=== PATIENT | male | born 1995 | race Caucasian/White ===

== ENCOUNTER 2024-08-13 16:48 | Inpatient (IN) | payer OTHER ==
--- NOTE | 2024-08-13 17:18 | ED ---
General Adult HPI - General Chief complaint: Psychiatric Symptoms Stated complaint: mental health- petition Time Seen by Provider: 08/13/24 16:50 Source: patient, police, RN notes reviewed Mode of arrival: ambulatory Limitations: altered mental status - History of Present Illness Initial comments: Patient is a 28-year-old male presenting to the emergency department with transit police officer escort. They do have concern for psychiatric eval. Patient originally called the police with concerns about demons and dogs tied to posts. Patient was then assaulting people at the building he was at. Patient arrested and brought to correction however had continued behavior. Family reportedly has intention of doing a petition on the patient. Patient will not speak to me at all. Patient does speak to nurse at times. - Related Data Home Medications Medication Instructions Recorded Confirmed No Known Home Medications 08/13/24 08/13/24 Allergies Allergy/AdvReac Type Severity Reaction Status Date / Time red dye 40 Allergy Nausea & Uncoded 08/13/24 18:44 Vomiting Review of Systems ROS Statement: Those systems with pertinent positive or pertinent negative responses have been documented in the HPI. ROS Other: All systems not noted in ROS Statement are negative. Limitations: ROS unobtainable due to patients medical condition Past Medical History Past Medical History: No Reported History History of Any Multi-Drug Resistant Organisms: None Reported Past Surgical History: No Surgical Hx Reported Past Psychological History: No Psychological Hx Reported Smoking Status: Never smoker Past Alcohol Use History: None Reported Past Drug Use History: Marijuana General Exam Limitations: no limitations General appearance: alert, in no apparent distress Head exam: Present: atraumatic Eye exam: Present: normal appearance Neck exam: Present: normal inspection. Absent: tenderness, meningismus Respiratory exam: Present: normal lung sounds bilaterally Cardiovascular Exam: Present: tachycardia GI/Abdominal exam: Present: soft. Absent: tenderness Extremities exam: Present: other (Bilateral feet are wet and cool) Neurological exam: Present: alert, altered Psychiatric exam: Present: anxious Expanded Focused psych exam: Present: mute Skin exam: Present: normal color Course Vital Signs 08/13/24 16:58 Temperature 98.1 F Pulse Rate 122 H Respiratory 20 Rate Blood Pressure 161/106 O2 Sat by Pulse 99 Oximetry Procedures - Restraint - Face to Face Restraint Occurrence 1 Patient's Immediate Situation: Endangers self safety, Endangers others' safety, Endangers staff safety Patient's Reaction to the Intervention: Uncooperative Patient's Medical & Behavioral Condition: Awake, Alert Need to Continue or Terminate Restraint or Seclusion: Continue Face to Face Eval of Restraint Date: 08/13/24 Face to Face Eval of Restraint Time: 19:04 Medical Decision Making - Medical Decision Making Was pt. sent in by a medical professional or institution (, JENNIFER, BUSINESS OPERATIONS MANAGER, urgent care, hospital, or half-way...) When possible be specific @ -No Did you speak to anyone other than the patient for history (EMS, parent, family, police, friend...)? What history was obtained from this source @ -Please provide history as patient refuses Did you review nursing and triage notes (agree or disagree)? Why? @ -I reviewed and agree with nursing and triage notes Were old charts reviewed (outside hosp., previous admission, EMS record, old EKG, old radiological studies, urgent care reports/EKG's, half-way records)? Report findings @ -No old charts were reviewed Differential Diagnosis (chest pain, altered mental status, abdominal pain women, abdominal pain men, vaginal bleeding, weakness, fever, dyspnea, syncope, headache, dizziness, GI bleed, back pain, seizure, CVA, palpatations, mental health, musculoskeletal)? @ -Differential Mental Health Depression, anxiety, bipolar, psychosis, schizophrenia, borderline personality, situational depression, adjustment disorder, behavioral disorder, brain tumor, malingering, substance abuse, encephalopathy, medication reaction, dementia, hypothyroidism, degenerative neurologic disorder, lupus.... This is not meant to be all-inclusive list EKG interpreted by me (3pts min.). @ -As above X-rays interpreted by me (1pt min.). @ -None done CT interpreted by me (1pt min.). @ -None done U/S interpreted by me (1pt. min.). @ -None done What testing was considered but not performed or refused? (CT, X-rays, U/S, labs)? Why? @ -None What meds were considered but not given or refused? Why? @ -None Did you discuss the management of the patient with other professionals (professionals i.e. , JENNIFER, BUSINESS OPERATIONS MANAGER, lab, RT, psych nurse, criminal justice social worker, circus artist, teacher, loan servicing officer, complex case manager)? Give summary @ -Case was discussed with psychiatric nurse with plans for admission Was smoking cessation discussed for >3mins.? @ -No Was critical care preformed (if so, how long)? @ -No Were there social determinants of health that impacted care today? How? (Homelessness, low income, unemployed, alcoholism, drug addiction, transportation, low edu. Level, literacy, decrease access to med. care, correction, rehab)? @ -No Was there de-escalation of care discussed even if they declined (Discuss DNR or withdrawal of care, Hospice)? DNR status @ -No What co-morbidities impacted this encounter? (DM, HTN, Smoking, COPD, CAD, Cancer, CVA, ARF, Chemo, Hep., AIDS, mental health diagnosis, sleep apnea, morbid obesity)? @ -None Was patient admitted / discharged? Hospital course, mention meds given and rou te, prescriptions, significant lab abnormalities, going to OR and other pertinent info. @ -Patient presents with concerns for psychiatric problems. Patient is delusional and restless and agitated. Patient is obsessed with demons and dragons. Positive clinical certificate completed. Undiagnosed new problem with uncertain prognosis? @ -No Drug Therapy requiring intensive monitoring for toxicity (Heparin, Nitro, Insulin, Cardizem)? @ -No Were any procedures done? @ -No Diagnosis/symptom? @ -Acute psychosis Acute, or Chronic, or Acute on Chronic? @ -Acute Uncomplicated (without systemic symptoms) or Complicated (systemic symptoms)? @ -Default Side effects of treatment? @ -No Exacerbation, Progression, or Severe Exacerbation? @ -No Poses a threat to life or bodily function? How? (Chest pain, USA, PR, pneumonia, PE, COPD, DKA, ARF, appy, cholecystitis, CVA, Diverticulitis, Homicidal, Suicidal, threat to staff... and all critical care pts) @ -No Disposition Clinical Impression: Psychosis Disposition: TRANSFER TO PSYCH HOSP/UNIT Is patient prescribed a controlled substance at d/c from ED?: No Referrals: None,Stated [REFERRING] - 1-2 days Time of Disposition: 20:14
[2024-08-13] MEDS: LORazepam 2 MG/ML INJ IM STA (19:20)
[2024-08-13] MEDS: ZIPRASIDONE 20 MG VIAL IM STA (19:20)
[2024-08-13] MEDS ORDERED: LORazepam 1 MG TAB PO PRN (21:35)
[2024-08-13] MEDS ORDERED: MAGNESIUM HYDROXIDE 2,400 MG/30 ML CUP PO PRN (21:35)
[2024-08-13] MEDS ORDERED: IBUPROFEN 600 MG TAB PO PRN (21:35)
[2024-08-13] MEDS ORDERED: MAG HYDROX/AL HYDROX/SIMETH 355 ML BOTTLE PO PRN (21:35)
[2024-08-13] MEDS ORDERED: ACETAMINOPHEN TAB 325 MG TAB PO PRN (21:35)
[2024-08-14] MEDS: HALOPERIDOL LACTATE 5 MG/ML 1 ML VIAL IM PRN (04:30)
[2024-08-14] MEDS: LORazepam 2 MG/ML INJ IM PRN (04:30)
--- NOTE | 2024-08-14 05:45 | P.MHFACE ---
Face to Face Restrain/Seclus - Evaluation Patient's Immediate Situation: Endangers others' safety, Endangers staff safety, Violent behavior Patient's Medical & Behavioral Condition: Sleeping Patient's Medical & Behavioral Condition - Comment: Patient became erratic, aggressive, and uncooperative with staff. He had to be physically restrained. He received 1 mg Ativan and 5 mg Haldol at 0430. At the time of this evaluation patient was seen sleeping. Chest rise and fall visualized. Face to Face Eval of Restraint Date: 08/14/24 Face to Face Eval of Restraint Time: 05:15
[2024-08-14] MEDS: LORazepam 2 MG/ML INJ IM STA (08:40)
[2024-08-14] MEDS: HALOPERIDOL LACTATE 5 MG/ML 1 ML VIAL IM STA (08:40)
[2024-08-14] MEDS: NICOTINE 14MG/24HR PATCH TRANSDERM SCH (09:14)
--- NOTE | 2024-08-14 09:14 | P.MHFACE ---
Face to Face Restrain/Seclus - Evaluation Patient's Immediate Situation: Endangers self safety, Endangers staff safety Patient's Reaction to the Intervention: Calm Patient's Medical & Behavioral Condition: Awake, Alert Patient's Medical & Behavioral Condition - Comment: Patient became aggressive, and uncooperative with staff. He had to be physically restrained. At the time of this evaluation patient was seen resting,awakes on voice command. Chest rise and fall visualized. Need to Continue or Terminate Restraint or Seclusion: Continue Face to Face Eval of Restraint Date: 08/14/24 Face to Face Eval of Restraint Time: 09:05
[2024-08-14] MEDS: chlorproMAZINE 25 MG/ML 2 ML AMP IM ONE (10:00)
[2024-08-14 10:10] LABS: Basophils % (A) 1 %; Eosinophils # (A) 0.1 k/uL (0-0.7); Eosinophils % (A) 1 %; HCT 43.9 % (39.0-53.0); HGB 13.9 gm/dL (13.0-17.5); Lymphocytes # (A) 1.3 k/uL (1.0-4.8); Lymphocytes % (A) 21 %; MCH 28.4 pg (25.0-35.0); MCHC 31.7 g/dL (31.0-37.0); MCV 89.5 fL (80.0-100.0); Mean Platelet Volume 6.5; Monocytes # (A) 0.5 k/uL (0-1.0); Monocytes % (A) 8 %; Neutrophils % (A) 68 %; Platelet Count 208 k/uL (150-450); RDW 12.6 % (11.5-15.5); WBC 5.9 k/uL (3.8-10.6)
[2024-08-14 10:51] LABS: ALT 18 U/L (4-49); AST 26 U/L (17-59); African American GFR (CKD) >90 (>60 ml/min/1.73 sqM); Alkaline Phosphatase 37 U/L (38-126); Anion Gap 8 mmol/L; Bilirubin,Unconjugated 0.8 mg/dL (0.0-1.1); Blood Urea Nitrogen 11 mg/dL (9-20); Calcium 9.2 mg/dL (8.4-10.2); Carbon Dioxide 26 mmol/L (22-30); Chloride 106 mmol/L (98-107); Glucose 81 mg/dL (74-99); Non-African American GFR(CKD) 87 (>60 ml/min/1.73 sqM); Potassium 3.8 mmol/L (3.5-5.1); Sodium 140 mmol/L (137-145); Total Bilirubin 0.8 mg/dL (0.2-1.3); Total Protein 6.5 g/dL (6.3-8.2)
--- NOTE | 2024-08-14 12:30 | P.HP ---
Psychiatric H&P - . H&P Date: 08/14/24 History & Physical: Allergies Allergy/AdvReac Type Severity Reaction Status Date / Time red dye 40 Allergy Nausea & Uncoded 08/13/24 18:44 Vomiting Vital Signs Temp 98.1 F 08/14/24 08:29 Pulse 73 08/14/24 08:29 Resp 18 08/14/24 08:29 BP 118/55 08/14/24 08:29 Pulse Ox 96 08/14/24 08:29 FiO2 Intake & Output 08/13/24 08/14/24 08/14/24 18:59 06:59 18:59 Weight 77.655 kg 82.27 kg Laboratory Last Values WBC 5.9 k/uL (3.8-10.6) 08/14/24 09:24 RBC 4.90 m/uL (4.30-5.90) 08/14/24 09:24 Hgb 13.9 gm/dL (13.0-17.5) 08/14/24 09:24 Hct 43.9 % (39.0-53.0) 08/14/24 09:24 MCV 89.5 fL (80.0-100.0) 08/14/24 09:24 MCH 28.4 pg (25.0-35.0) 08/14/24 09:24 MCHC 31.7 g/dL (31.0-37.0) 08/14/24 09:24 RDW 12.6 % (11.5-15.5) 08/14/24 09:24 Plt Count 208 k/uL (150-450) 08/14/24 09:24 MPV 6.5 08/14/24 09:24 Neutrophils % 68 % 08/14/24 09:24 Lymphocytes % 21 % 08/14/24 09:24 Monocytes % 8 % 08/14/24 09:24 Eosinophils % 1 % 08/14/24 09:24 Basophils % 1 % 08/14/24 09:24 Neutrophils # 4.0 k/uL (1.3-7.7) 08/14/24 09:24 Lymphocytes # 1.3 k/uL (1.0-4.8) 08/14/24 09:24 Monocytes # 0.5 k/uL (0-1.0) 08/14/24 09:24 Eosinophils # 0.1 k/uL (0-0.7) 08/14/24 09:24 Basophils # 0.0 k/uL (0-0.2) 08/14/24 09:24 Sodium 140 mmol/L (137-145) 08/14/24 09:24 Potassium 3.8 mmol/L (3.5-5.1) 08/14/24 09:24 Chloride 106 mmol/L (98-107) 08/14/24 09:24 Carbon Dioxide 26 mmol/L (22-30) 08/14/24 09:24 Anion Gap 8 mmol/L 08/14/24 09:24 BUN 11 mg/dL (9-20) 08/14/24 09:24 Creatinine 1.14 mg/dL (0.66-1.25) 08/14/24 09:24 Est GFR (CKD-EPI)AfAm >90 (>60 ml/min/1.73 sqM) 08/14/24 09:24 Est GFR (CKD-EPI)NonAf 87 (>60 ml/min/1.73 sqM) 08/14/24 09:24 Glucose 81 mg/dL (74-99) 08/14/24 09:24 Calcium 9.2 mg/dL (8.4-10.2) 08/14/24 09:24 Total Bilirubin 0.8 mg/dL (0.2-1.3) 08/14/24 09:24 Conjugated Bilirubin 0.0 mg/dL (0.0-0.3) 08/14/24 09:24 Unconjugated Bilirubin 0.8 mg/dL (0.0-1.1) 08/14/24 09:24 Delta Bilirubin 0.0 mg/dL (0.0-0.2) 08/14/24 09:24 AST 26 U/L (17-59) 08/14/24 09:24 ALT 18 U/L (4-49) 08/14/24 09:24 Alkaline Phosphatase 37 U/L (38-126) L 08/14/24 09:24 Total Protein 6.5 g/dL (6.3-8.2) 08/14/24 09:24 Albumin 4.0 g/dL (3.5-5.0) 08/14/24 09:24 TSH 1.270 mIU/L (0.465-4.680) 08/14/24 09:24 SARS-CoV-2 (PCR) Not Detected (Not Detectd) 08/13/24 20:15 08/14/24 12:12 IDENTIFYING DATA: Patient is a 28-year-old male, lives with parents, was petitioned by his sister for psychosis agitation/aggression. HPI: Patient presented to the hospital [yesterday and was evaluated by EPS nurse and according to note "Upon assessment pt was in restraints. RN explained to pt why he was restrained, he states, "I wanted to scare them to break the hypnosis". Pt was calm during assessment and was taken out. Pt verbally contracted for safety. RN continued the assessment. Pt was slightly drowsy r/t IM's given. Pt denied SI, HI, and hallucinations at this time. RN did not see pt responding to IS at this time. When asked why he was here he stated "the fire department, they had a mailmaster on the roof...demonic sacrifice alter...I could see they were being controlled, it was all apart of the scheme". When pt was taken out of restraints pt asked, "you aren't all brain washed are you"? Pt was petitioned by his sister who states he is erratic, religiously preoccupied, he is channeling demonic energies. He has not been sleeping or eating. He has been physically aggressive. He believes that his mother is a demon he need to punch her in the face to reset the timeline. Pt has no insight into his mental health. Pt denies etoh use. Admits to use of marijuana, but denies the use of ot her substances. Denies any medical conditions. Not in any mental health treatment and denies any inpatient stays. Pt has no home medications." Patient was very agitated and aggressive in the ER, psychotic and delusional. Patient was given several as needed medications for agitation, also placed in restraints. Patient was transferred to the mental health unit, again was aggressive towards staff attempted to steal nurses keys. Patient was not redirectable, was placed in restraints twice this morning and given several PRNs. Automobile Glass Technician attempted to see patient this morning for assessment and patient was just out of 4 point restraints. He was heavily sedated, mumbled a few words, had the blankets covering his head. He did speak about being "controlled" by demons and believes that someone is out to get him. Not much information at this time. According to petition filled out by patient's sister states that "in a state of delusional psychosis, erratic behavior spiritually and religiously p reoccupied. States he is an Archangel Charlie and channeling demonic energies physically and verbally hostile and aggressive. Not eating or sleeping". Petition also states that patient was threatening to punch his mother and her face and was believing that his mother was a demon and thought that he had spiritual sanchez. patient unable to give further infortmation att this time due to heavy sedation and mental state. PAST PSYCHIATRIC HISTORY: Patient has no noted site past psychiatric history, has never been admitted to the mental health unit. Not on any psychiatric medications at home. PMH: as per ER note ALLERGIES: as per EMR CHEMICAL DEPENDENCY HISTORY: Patient did not give a urine drug screen, does state that he smokes marijuana only FAMILY PSYCHIATRIC/SUBSTANCE USE HISTORY: Unable to assess SOCIAL HISTORY: Patient lives with his parents, he is unable to provide further social history MENTAL STATUS EXAM: General Appearance: Patient appears to be in bed, heavily sedated and sheets covering him. Not directable, mumbling and unable to assess Behavior: Patient in bed, heavily sedated Speech: Patient's speech is mumbling Mood/Affect: Unable to assess Suicidality/Homicidality: Unable to assess Perceptions: Unable to assess Though content/process: Unable to assess, patient was apparently illogical, loose associations religiously preoccupied. Memory and concentration: Unable to assess due to heavy sedation Judgment and insight: Poor/impulsive STRENGTHS/WEAKNESSES: strength is that patient is resilient. Weakness is that patient has poor judgment and is impulsive INTELLECT: unable to assess IMPRESSIONS: Psychosis unspecified, rule out substance-induced versus schizophrenia versus schizoaffective disorder versus due to a general medical condition Cannabis use disorder PLAN: -Patient is admitted under involuntary status to MHU for stabilization of psychiatric symptoms and safety. Patient has not signed adult voluntary form and has not signed medication consent and is placed in patient's chart. A second certification was completed and along with petition will be filed for court. -Medications : Invega p.o. 3 mg twice daily for psychosis/mood stabilization. -Ativan and Thorazine PRN for agitation/aggression. Vistaril as needed for anxiety. -Internal Medicine consult to perform medical evaluation and physical. -NRT -not needed -SW on board for discharge planning. Encourage patient to participate in groups to work on coping skills. Will await deferral and court date. 08/14/24 12:17 08/14/24 12:21 08/14/24 12:29
--- NOTE | 2024-08-14 14:55 | P.MDCNMH ---
History of Present Illness H&P Date: 08/14/24 This is a 28-year-old male who was brought in by police and petitioned for psychiatric evaluation. Patient originally per ER documentation had called the police with concerns about demons and dogs being tied to the posts and was also noted to be assaulting people at the building where he was at and patient was ultimately arrested and brought to [facility] although continued to have aggressive psychotic behavior and brought to the ER for further evaluation. Patient is petitioned and deemed medically stable from the ER and brought to [facility] for continued psychiatric care and evaluation. Patient follows with Dr. Bowser in the outpatient setting with no significant past medical history reported other than marijuana use daily. Patient had labs drawn this morning and within normal limits other than a creatinine mildly elevated at 1.14. COVID testing was negative. Patient extremely aggressive and a code ohara was called on psychiatric unit and patient was medicated and currently sedated. Will attempt to reevaluate on 08/15/2024. REVIEW OF SYSTEMS: Unable to obtain as patient is sedated currently The rest of the 14-point review of systems is negative. PHYSICAL EXAMINATION: GENERAL: The patient is alert and oriented x0 sedated, Well developed, thin built HEENT: Pupils are round and equally reacting to light. EOMI. No scleral icterus. No conjunctival pallor. Normocephalic, atraumatic. No pharyngeal erythema. No thyromegaly. CARDIOVASCULAR: S1 and S2 present. No murmurs, rubs, or gallops. PULMONARY: Chest is clear to auscultation, no wheezing or crackles. ABDOMEN: Soft, nontender, nondistended, normoactive bowel sounds. No palpable organomegaly. MUSCULOSKELETAL: No joint swelling or deformity. EXTREMITIES: No cyanosis, clubbing, or pedal edema. NEUROLOGICAL: Gross neurological examination did not reveal any focal deficits. SKIN: No rashes. Assessment: Psychosis with hallucinations, possible schizophrenia versus schizoaffective disorder THC use, daily GI prophylaxis Full code Plan: Patient was petitioned and brought in by police after being arrested for irrat ional aggressive behavior Patient is in acute psychosis reporting there are demons and people out to get him Concerns for polysubstance abuse although only reports to smoking marijuana daily. Urine drug screen ordered and pending at this time Patient extremely aggressive multiple times on the unit and currently heavily sedated. Will attempt to perform a physical assessment more thoroughly on 08/[address] Bowser in the outpatient setting and will attempt to gather more medical history Thank you kindly for this consultation The impression and plan of care has been dictated by Vani Burger, Nurse Practitioner as directed. Dr. Gely MD I have performed a history and examination and MDM of this patient, discussed the same with the dictator, and agree with the dictator's assessment and plan as written ,documented as a scribe. Based on total visit time, I have performed more than 50% of the visit. Past Medical History Past Medical History: No Reported History History of Any Multi-Drug Resistant Organisms: None Reported Past Surgical History: No Surgical Hx Reported Past Anesthesia/Blood Transfusion Reactions: Unable to Obtain Past Psychological History: No Psychological Hx Reported Smoking Status: Never smoker Past Alcohol Use History: None Reported Past Drug Use History: Marijuana - Past Family History Father Family Medical History: Unable to Obtain Mother Family Medical History: Unable to Obtain Medications and Allergies Home Medications Medication Instructions Recorded Confirmed Type No Known Home Medications 08/13/24 08/13/24 History Allergies Allergy/AdvReac Type Severity Reaction Status Date / Time red dye 40 Allergy Nausea & Uncoded 08/13/24 18:44 Vomiting Physical Exam Vitals: Vital Signs Temp Pulse Pulse Resp BP BP Pulse Ox 08/13/24 23:00 98.6 F 74 18 148/96 98 08/13/24 22:37 47 L 104/65 08/13/24 16:58 98.1 F 122 H 20 161/106 99 Intake and Output 08/13/24 08/14/24 08/14/24 22:59 06:59 14:59 Other: Weight 82.27 kg 82.27 kg Cranial Nerve Examination - Cranial Nerves Cranial Nerve I- Olfactory: Intact Cranial Nerve II- Optic: Intact Cranial Nerve III- Oculomotor: Intact Cranial Nerve IV- Trochlear: Intact Cranial Nerve V- Trigeminal: Intact Cranial Nerve - Abducens: Intact Cranial Nerve VII- Facial: Intact Cranial Nerve VIII- Auditory: Intact Cranial Nerve IX- Glossopharyngeal: Intact Cranial Nerve X- Vagus: Intact Cranial Nerve XI- Accessory: Intact Cranial Nerve XII- Hypoglossal: Intact Results CBC & Chem 7: 08/14/24 09:24 08/14/24 09:24 Assessment and Plan Time with Patient: Less than 30
[2024-08-14 16:53] LABS: Chol/HDL Ratio 3.29 Ratio; LDL Cholesterol,Calculated 92.5 mg/dL (0.0-131.0)
[2024-08-15] MEDS: LORazepam 2 MG/ML INJ IM PRN (12:49)
--- NOTE | 2024-08-15 13:36 | P.PN ---
Subjective Progress Note Date: 08/15/24 Principal diagnosis: psychosis NOS I was called to see the patient because he had become agitated. He was standing in the [place] with just the hospital gown on his hair was disheveled his affect intense. The second he saw me he said are you the doctor. We then came up to me and demanded to be discharged. Then he asked me if I scared easily and proceeded to throw his arms in the air and my direction and scream at the top of his lungs. He then was waving his hand in my face with his finger extended and I did feel somewhat endangered but I had security guards standing right there. He said, "you have to let me out of here because I'm an kori in hell".he had had a when necessary of Haldol and Ativan about 20 minutes earlier and it has not kicked in yet. Yesterday the same dose made him sedated MENTAL STATUS EXAM: General Appearance: disheveled Behavior: agitated demanding loud pacing no boundaries physically Speech: Patient's speech isrambling and somewhat psychotic Mood/Affect: Unable to assess Suicidality/Homicidality: Unable to assess Perceptions: Unable to assess Though content/process: Unable to assess, patient was apparently illogical, loose associations religiously preoccupied. Memory and concentration: he said "this is wanting to talk to me but he should just let me out of here." Judgment and insight:absent due to psychosis STRENGTHS/WEAKNESSES: strength is that patient is resilient. Weakness is that patient has poor judgment and is impulsiveand is psychotic INTELLECT: unable to assess IMPRESSIONS: he is a danger to self and others due to psychosis and angry agitation and yelling and threatening behavior Psychosis unspecified, rule out substance-induced versus schizophrenia versus schizoaffective disorder versus due to a general medical condition Cannabis use disorder PLAN: we might have to increase his when necessary's he is young and the 5 and 1 don't seem to hold for long enough. He became so agitated we had to put him in restraints. Because the patient wouldn't take medicine. It would be good if, rather than wait to becomes agitated andB given Haldol and Ativan and then he gets sedated,he would just take the regular medicine. he does have N Zhang ordered. -Patient is admitted under involuntary status to MHU for stabilization of psychiatric symptoms and safety. Patient has not signed adult voluntary form and has not signed medication consent and is placed in patient's chart. A second certification was completed and along with petition will be filed for court. -Medications : Invega p.o. 3 mg twice daily for psychosis/mood stabilization. -Ativan and Thorazine PRN for agitation/aggression. Vistaril as needed for anxiety. -Internal Medicine consult to perform medical evaluation and physical. -NRT -not needed -SW on board for discharge planning. Encourage patient to participate in groups to work on coping skills. Will await deferral and court date. Objective - Vital Signs Vital signs: Vital Signs Temp 98.1 F 08/14/24 08:29 Pulse 73 08/14/24 08:29 Resp 18 08/14/24 08:29 BP 118/55 08/14/24 08:29 Pulse Ox 96 08/14/24 08:29 FiO2 - Labs CBC & Chem 7: 08/14/24 09:24 08/14/24 09:24
[2024-08-15] MEDS: chlorproMAZINE 25 MG/ML 2 ML AMP IM PRN (13:38)
--- NOTE | 2024-08-15 13:44 | P.PN ---
Subjective Progress Note Date: 08/15/24 Principal diagnosis: psychosis NOS I saw the patient get it at 140 in the afternoon he become agitated ran into her room and beating on the window hard enough that he could easily of hurting himself and he is still quite psychotic rambling and angry at [place] no insight,, " you people all hypnotized and I have to yell to try to break the hypnotism so you let me out of here".remainsa danger to himself and others due to the psychosis hopefully in restraints he'll calm down having had the Haldol and Ativan and we can let him up again Objective - Vital Signs Vital signs: Vital Signs Temp 98.1 F 08/14/24 08:29 Pulse 73 08/14/24 08:29 Resp 18 08/14/24 08:29 BP 118/55 08/14/24 08:29 Pulse Ox 96 08/14/24 08:29 FiO2 - Labs CBC & Chem 7: 08/14/24 09:24 08/14/24 09:24
--- NOTE | 2024-08-16 07:53 | P.PN ---
Subjective Progress Note Date: 08/16/24 Principal diagnosis: psychosis NOS subjective: The patient came up to me in the [facility] wanted know if I could order a brain scan. He explained that all the pollution from the [place] [employer] in the paving of him burning of also feels does not look bad from down here but if you see it from the perspective of the stars for the sun it looks terrible.he said that his own perspective was imprinted in his brain by his parents and that if we could understand that he is perfectly all right and agree with his imprinting and change her ways we would all be better off. He felt that getting a brain scan which revealed the imprinting for the benefit of everyone else because all were imprinting from our parents is not accurate. Objective the patient is very intelligent slightly pressured labile moods alert pacing the halls minimal self-care gait and station door normal. He does not seem to be hallucinating but his ideas jump from one topic to not return make no real sense. Assessment: Still little early to tell but he comes across 6 someone in bipolar sallie to the tentative diagnosis would be bipolar 1 manic with psychotic features He said that he would be willing to take medications if it has and his discharge. He said that he had taken medicine the past that had an L in the middle that was helpful I asked him if Abilify sounded reasonable and said that sounded right. We Will Try to Get Him to take Abilify This Morning. He Signed a Form That He Would Be Willing to.I reviewed the possibility of akathisia or of EPS and that he should report if he had side effects like that. Was started 10 mg consider this young and racing and needs a decent dose. Objective - Vital Signs Vital signs: Vital Signs Temp 98.1 F 08/14/24 08:29 Pulse 104 H 08/15/24 13:30 Resp 18 08/14/24 08:29 BP 147/81 08/15/24 13:30 Pulse Ox 96 08/15/24 13:30 FiO2 - Labs CBC & Chem 7: 08/14/24 09:24 08/14/24 09:24
[2024-08-16] MEDS: ARIPiprazole 10 MG TAB PO SCH (08:10)
[2024-08-16] MEDS: LORazepam 1 MG TAB PO PRN (12:56)
[2024-08-16] MEDS: haloperidoL 5 MG TAB PO PRN (12:57)
[2024-08-16 13:35] LABS: Appearance,Urine Clear (Clear); Bilirubin,Urine Negative (Negative); Blood,Urine Negative (Negative); Color,Urine Colorless; Glucose,Urine (UA) Negative (Negative); Ketones,Urine 1+ (Negative); Leukocyte Esterase,Urine Negative (Negative); Nitrite,Urine Negative (Negative); PH, Urine 5.5 (5.0-8.0); Protein,Urine Negative (Negative); Specific Gravity,Urine 1.005 (1.001-1.035); Urobilinogen,Urine <2.0 mg/dL (<2.0)
[2024-08-16 13:48] LABS: Amphetamine Screen,Urine Not Detected (NotDetected); Barbiturate Screen,Urine Not Detected (NotDetected); Benzodiazepines Screen,Urine Detected (NotDetected); Cocaine Screen,Urine Not Detected (NotDetected); Methadone Screen, Urine Not Detected (NotDetected); Opiate Screen,Urine Not Detected (NotDetected); Oxycodone Screen, Urine Not Detected (NotDetected); Phencyclidine Screen,Urine Not Detected (NotDetected); Tricyclic Antidepressant,Urine Not Detected (NotDetected); Urn Cannabinoid Scrn Detected (NotDetected)
[2024-08-16] MEDS: LORazepam 2 MG/ML INJ IM STA (14:56)
[2024-08-17] MEDS: chlorproMAZINE 25 MG TAB PO PRN (08:33)
[2024-08-17] MEDS: HALOPERIDOL ORAL SOLN 10 MG/5 ML CUP PO SCH (14:24)
--- NOTE | 2024-08-17 17:02 | P.PN ---
Progress Note - Text Progress Note Date: 08/17/24 Interval history: Patient was relaxing in his room and was agreeable to speak with this residential mortgage underwriter in the office. He claims he has been "fine". He is focused on discharge. His thought content consists of mostly paranoid delusional thought content. He states his family ganged up on him when he told them about a [employer] that is pumping pollution into the air because the days have been layne and cloudy and blocking out the sun. 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 He states he found an alter in the [place] with demonic symbolism on it, and he called the police. His thoughts are tangential, reports a couple people had inside intel and hacked into something, because each time he called someone it sounded like drones. He appears anxious and states "I'm not delusional". The history he provides is somewhat disorganized and vague, consists of paranoid delusions. He reports some named "Henri" intercepted the broadcasting. He believes when he was placed in restraints in the ER the police officers were hypnotized. He asks if I am a [place] fan, and tells me to watch the [employer] movies from a perspective of devil anabaptist, and believes this is part of "bigger ballgames" where the music and symbolism in the movies is sending messages. He admits to using marijuana "socially", about "a joint four days a week". He slept 6+ hours last night, and claims he is sleeping well. He required Thorazine 50 mg po x1 and Ativan 2 mg po x 1 this morning due to agitation and anxiety, was yelling and lunging at staff at medication window, per nurse report. Yesterday he required Haldol 5 mg po x1, Ativan 2 mg po x 1 and Ativan 2 mg IM x 1 due to agitation. At this time, patient denies any suicidal or homicidal ideation, intent or plan. Patient denies any auditory or visual hallucinations. Patient denies any side effects from the medications and has been compliant with meds. Mental Status Exam: General Appearance: Patient appears to be stated age, unshaven, shaggy haircut, dressed in casual sports attire. Behavior: Patient is seated without any agitated behavior, appears anxious. Speech: Patient's speech is fluent and non-pressured. Mood/Affect: He claims he is "fine" but appears to be on edge/anxious, affect is mood-incongruent and constricted. Suicidality/Homicidality: Patient denies having any suicidal or homicidal ideation intent or plan. Perceptions: Patient denies any visual hallucinations and denies any auditory hallucinations. Though content/process: There is evidence of paranoid delusional thought content and thought process is tangential/rambling. Memory and concentration: AOX3, grossly intact for the purposes of this session Judgment and insight: Improving mildly Assessment: Psychosis unspecified, rule out substance-induced versus schizophrenia versus schizoaffective disorder versus delusional disorder Cannabis use disorder Plan: -Patient is admitted under involuntary status to MHU for stabilization of psychiatric symptoms and safety. Patient has not signed adult voluntary form and has not signed medication consent and is placed in patient's chart. -Medications: Increase Abilify from 10 mg daily to 15 mg daily starting tomorrow AM, for psychosis and mood stabilization. -Ativan and Thorazine PRN for agitation/aggression. Vistaril as needed for anxiety. -Internal Medicine consult to perform medical evaluation and physical. -NRT - not needed -SW on board for discharge planning. Encourage patient to participate in groups to work on coping skills. Will await deferral and court date.
[2024-08-18] MEDS: ARIPiprazole 15 MG TAB PO SCH (08:35)
[2024-08-18] MEDS: HALOPERIDOL ORAL SOLN 10 MG/5 ML CUP PO PRN (12:38)
[2024-08-18] MEDS: PALIPERIDONE 6 MG TAB.ER.24 PO SCH (13:45)
--- NOTE | 2024-08-18 13:58 | P.PN ---
Progress Note - Text Progress Note Date: 08/18/24 Interval history: Patient was seen today wandering the hallways very persistent and wanting to speak to junior technical writer today. Patient has been fairly agitated at times, lunging at people, attempting to steal keys for possible elopement. Patient has received several as needed medications. Started on Abilify has been taking it. Patient was also caught up reportedly trying to cheek medications. He signed the deferral today with his farm products shipper. Patient apparently has been calling the police and 911.patient was seen by the window today, remains impulsive agitated at times, intrusive with junior technical writer demanding discharge. He brought up a form and demanded junior technical writer to sign it so he can be released. He continues to have very poor insight poor judgment. He has been pacing the hallways intrusive with others. Has received several as needed medications. At this time, patient denies any suicidal or homicidal ideation, intent or plan. Patient denies any auditory or visual hallucinations. Superficial. Patient denies any side effects from the medications and has been compliant with meds. Mental Status Exam: General Appearance: Patient appears to be tall, curly hair, stated age, unshaven, shaggy haircut, dressed in casual sports attire. Behavior: Patient is seated without any agitated behavior, appears anxious and upset. Impulsive Speech: Patient's speech is fluent and non-pressured. Mood/Affect: He claims he is "ok" but appears to be on edge/anxious, affect is mood-incongruent and labile Suicidality/Homicidality: Patient denies having any suicidal or homicidal ideation intent or plan. Perceptions: Patient denies any visual hallucinations and denies any auditory hallucinations. Though content/process: There is evidence of paranoid delusional thought content and thought process is tangential/rambling. Demanding, intrusive Memory and concentration: AOX3, grossly intact for the purposes of this session Judgment and insight: Poor Assessment: Psychosis unspecified, rule out substance-induced versus schizophrenia versus schizoaffective disorder versus delusional disorder Cannabis use disorder Plan: -Patient is admitted under involuntary status to MHU for stabilization of psychiatric symptoms and safety. Patient has not signed adult voluntary form and has not signed medication consent and is placed in patient's chart. -Medications: Discontinue Abilify and replace with Invega 6 mg PO daily then will be increased to 9 mg daily starting tomorrow for psychosis and mood stabilization. patient will likely need Transition to [facility]. -Ativan and Thorazine PRN for agitation/aggression. Vistaril as needed for anxiety. -NRT - not needed -SW on board for discharge planning. Encourage patient to participate in groups to work on coping skills. Patient signed deferral with his farm products shipper on 08/18
[2024-08-18] MEDS: LORazepam 2 MG/ML INJ IM PRN (14:36)
[2024-08-19] MEDS: PALIPERIDONE 3 MG TAB.ER.24 PO SCH ×2 (08:40→21:44)
--- NOTE | 2024-08-19 11:46 | P.PN ---
Progress Note - Text Progress Note Date: 08/19/24 Interval history: Patient was seen today wandering the hallways very persistent and wanting to speak to policy writer sales today. He was waiting outside of policy writer sales's door several times pacing [id number]. He appears to be a bit calmer today continues to have fairly poor insight into his treatment, continues to be focused on discharge. Claims that he has "kids to take care of". Continues to have poor judgment as well. He apparently was found yesterday in a storage room with painting supplies while on the unit as the door was unlocked, he was hiding. He received prns yesterday for agitation agreession and not being redirectable. Patient continues to have issues with impulsivity, speaking fast, continues to be labile. Claims that he slept fairly last night has been eating well. Not interested in going to many groups. At this time, patient denies any suicidal or homicidal ideation, intent or plan. Patient denies any auditory or visual hallucinations. Cable Driller attempted to speak to patient today about transitioning onto long-acting injection, patient agreed to this. He was requesting a switch in doctors today. Mental Status Exam: General Appearance: Patient appears to be tall, curly hair, stated age, unshaven, shaggy haircut, dressed in casual sports attire. Behavior: Patient is seated without any agitated behavior, appears anxious, Impulsive Speech: Patient's speech is fluent and non-pressured. Mood/Affect: He claims he is "fine" but appears to be on edge/anxious, affect is mood-incongruent and labile, improving mildly Suicidality/Homicidality: Patient denies having any suicidal or homicidal ideation intent or plan. Perceptions: Patient denies any visual hallucinations and denies any auditory hallucinations. Though content/process: There is evidence of paranoid delusional thought content and thought process is tangential/rambling. Demanding, intrusive, improving mildly Memory and concentration: AOX3, grossly intact for the purposes of this session Judgment and insight: Poor, improving mildly Assessment: schizoaffective disorder Cannabis use disorder Plan: -Patient is admitted under involuntary status to MHU for stabilization of psychiatric symptoms and safety. Patient has not signed adult voluntary form and has not signed medication consent and is placed in patient's chart. -Medications: change Invega 3 mg PO BID for psychosis and mood stabilization. will offer Invega sustenna 234 mg IM today to help ensure compliance. -Ativan and Thorazine PRN for agitation/aggression. Vistaril as needed for anxiety. -NRT - not needed -SW on board for discharge planning. Encourage patient to participate in groups to work on coping skills. Patient signed deferral with his brick kiln worker on 08/18. due to patients high risk of non compliance, very poor insight and judgment and to help stabilize patients symptoms further, the [facility] will be part of his treatment plan.
[2024-08-19] MEDS: PALIPERIDONE IM 234 MG/1.5 ML SYG IM ONE (13:20)
[2024-08-20] MEDS ORDERED: hydrOXYzine pamoate 25 MG CAP PO PRN (11:31)
--- NOTE | 2024-08-20 11:31 | P.PN ---
Progress Note - Text Progress Note Date: 08/20/24 Interval history: Patient was seen today wandering the hallways, agreeable to speak to lead technical writer brigid flores. He appears to be a bit calmer today however remains fairly focused on discharge. He claims that he has been just "pacing in the hallways" and states that he wants his "freedom back". He continues to have very superficial insight into his mental health condition and need for treatment. When lead technical writer attempted to reflect back on patient's aggressive behaviors and psychosis/delusions when he came into the hospital, patient was rationalizing claims that "my sister lied about me". He again even minimizes all the as needed medications in the times when he was in restraints. He pleaded with lead technical writer several times to be discharged. Claims that he is going to some groups, he feels bored on the unit. Showing less intrusiveness and impulsivity. Claims that he slept fairly last night has been eating well. At this time, patient denies any suicidal or homicidal ideation, intent or plan. Patient denies any auditory or visual hallucinations. We spoke about the patient receiving the second dose of Invega Sustenna likely in 3 or 4 days over the weekend before being discharged. Mental Status Exam: General Appearance: Patient appears to be tall, curly hair, stated age, unshaven, shaggy haircut, dressed in casual sports attire. Behavior: Patient is seated without any agitated behavior, appears anxious, less impulsive today Speech: Patient's speech is fluent and non-pressured. Rambling at times Mood/Affect: He claims he is "ok just anxious" but appears to be on edge/anxious, improving, affect is mood-incongruent Suicidality/Homicidality: Patient denies having any suicidal or homicidal ideation intent or plan. Perceptions: Patient denies any visual hallucinations and denies any auditory hallucinations. Though content/process: There is evidence of paranoid delusional thought content and thought process is tangential/rambling. Patient is fairly superficial, continues to have poor insight, demanding discharge Memory and concentration: AOX3, grossly intact for the purposes of this session Judgment and insight: Poor/superficial, improving mildly Assessment: schizoaffective disorder Cannabis use disorder Plan: -Patient is admitted under involuntary status to MHU for stabilization of psychiatric symptoms and safety. Patient has not signed adult voluntary form and has not signed medication consent and is placed in patient's chart. -Medications: decrease Invega 3 mg PO hs for psychosis and mood stabilization for two more nights then d/c. was given Invega sustenna 234 mg IM on 08/19 and next dose of 156 mg IM will be due on 08/23 to help ensure compliance. -Ativan and Thorazine PRN for agitation/aggression. added trazodone 100 mg qhs for insomnia/mood. Vistaril as needed for anxiety. -NRT - not needed -SW on board for discharge planning. Encourage patient to participate in groups to work on coping skills. Patient signed deferral with his assistant prosecuting attorney on 08/18. due to patients high risk of non compliance, very poor insight and judgment and to help stabilize patients symptoms further, the [facility] will be part of his treatment plan, was given first dose on 08/19, second dose will be needed on 08/23, likely discharge Saturday if patient is doing well psychiatrically improving.
[2024-08-20] MEDS: traZODone HCL 100 MG TAB PO SCH (20:32)
[2024-08-20] MEDS: PALIPERIDONE 3 MG TAB.ER.24 PO SCH (20:32)
--- NOTE | 2024-08-21 11:39 | P.PN ---
Progress Note - Text Progress Note Date: 08/21/24 Interval history: Patient was seen today wandering the hallways, agreeable to speak to telegraphic typewriter mechanic brigid flores. Patient was also noted to be in group earlier today. He appears to have an improvement in his affect, was smiling today. States that he is doing better. He remains a bit focused on discharge however was more reasonable today, focused on the plan moving forward. He continues to be agreeable to receive the long-acting injection over the weekend and discharge Saturday. Claims that his insight into his condition is improving, judgment improving as well. Claims that he slept fairly last night. Claims that he is not having any depression or anxiety at this time. At this time, patient denies any suicidal or homicidal ideation, intent or plan. Patient denies any auditory or visual hallucinations. Patient has been taking his medications. Mental Status Exam: General Appearance: Patient appears to be tall, curly hair, stated age, unshaven, shaggy haircut, dressed in casual sports attire. Behavior: Patient is seated without any agitated behavior, appears less anxious today, more cooperative Speech: Patient's speech is fluent and non-pressured. Mood/Affect: He claims he is "good", improving, affect is mood-congruent Suicidality/Homicidality: Patient denies having any suicidal or homicidal ideation intent or plan. Perceptions: Patient denies any visual hallucinations and denies any auditory hallucinations. Though content/process: There is evidence of paranoid delusional thought content and thought process is improving. Patient is fairly superficial, improving. Continues to be focused on discharge Memory and concentration: AOX3, grossly intact for the purposes of this session Judgment and insight: Superficial, improving mildly Assessment: schizoaffective disorder Cannabis use disorder Plan: -Patient is admitted under involuntary status to MHU for stabilization of psychiatric symptoms and safety. Patient has not signed adult voluntary form and has not signed medication consent and is placed in patient's chart. -Medications: Invega 3 mg PO hs for psychosis and mood stabilization, last dose tonight. was given Invega sustenna 234 mg IM on 08/19 and next dose of 156 mg IM will be due on 08/23 to help ensure compliance. -Ativan and Thorazine PRN for agitation/aggression. trazodone 100 mg qhs for insomnia/mood. Vistaril as needed for anxiety. -NRT - not needed -SW on board for discharge planning. Encourage patient to participate in groups to work on coping skills. Patient signed deferral with his commonwealth attorney on 08/18. due to patients high risk of non compliance, very poor insight and judgment and to help stabilize patients symptoms further, the [facility] will be part of his treatment plan, was given first dose on 08/19, second dose will be needed on 08/23, likely discharge Saturday if patient is doing well psychiatrically improving.
--- NOTE | 2024-08-22 10:39 | P.PN ---
Progress Note - Text Progress Note Date: 08/22/24 Interval history: Patient was seen wandering the hallways and was directable and agreeable to s peak with narrative writer. Patient appears to be more pleasant today, more interactive with narrative writer. He has been seen talking with other patients on the unit. Has been going to groups, less focused on discharge today. Claims that the medications have been going well for him, denying any anxiety or depression at this time. States that he slept fairly last night. At this time patient denies any suicidal or homicidal ideations intent or plan. Denies any Auditory or visual hallucinations. Patient denies any side effects from the medications and has been compliant with meds. Patient will be receiving the long-acting injection second dose tomorrow likely discharge Saturday he is okay with this plan. Mental status exam: General Appearance: Patient appears to be tall, curly hair, stated age is alert, directable, and cooperative. Behavior: No agitated behavior. Patient is calm and directable cooperative Speech: Patient's speech is fluent and nonpressured. Mood/Affect: Mood is improving mildly, affect is congruent and affect is happy Suicidality/Homicidality: Patient denies having any suicidal or homicidal ideation intent or plan. Perceptions: Patient denies any auditory or visual hallucinations. Though content/process: There is no evidence of any delusional thought content and thought process is linear and goal-directed. Memory and concentration: AOX3, grossly intact for the purposes of this session Judgment and insight: improving mildly Assessment/Plan: Continue with current diagnosis. Patient continues to meet criteria for inpatient psychiatric admission for symptom stabilization and safety. Patient will be maintained on current psychotropic medication regimen. Will give second dose of long-acting injection tomorrow, plan for discharge Saturday if patient is doing well. Monitor for medication compliance and for any psychotropic medication side effects. Will continue to monitor ongoing response to treatment. Encouraged participation in milieu.
--- NOTE | 2024-08-23 12:11 | P.PN ---
Progress Note - Text Progress Note Date: 08/23/24 Interval history: Patient was seen wandering the hallways and was directable and agreeable to s peak with medical technical writer. Patient was seen earlier today interacting with other patients, playing games. He appears to be more pleasant today, more future oriented. Answer questions appropriately. States that he is doing well denied any issues overnight. Wants to keep his medications the same. We spoke about the long-acting injection given today he is okay with this. States that he slept fairly last night, denies any problems with his appetite. Denies any Auditory or visual hallucinations. Patient denies any side effects from the medications and has been compliant with meds. Mental status exam: General Appearance: Patient appears to be tall, curly hair, stated age is alert, directable, and cooperative. Behavior: No agitated behavior. Patient is calm and directable cooperative Speech: Patient's speech is fluent and nonpressured. Improving mildly Mood/Affect: Mood is improving mildly, affect is congruent and affect is improving Suicidality/Homicidality: Patient denies having any suicidal or homicidal ideation intent or plan. Perceptions: Patient denies any auditory or visual hallucinations. Though content/process: There is no evidence of any delusional thought content and thought process is linear and goal-directed. More future oriented Memory and concentration: AOX3, grossly intact for the purposes of this session Judgment and insight: improving mildly Assessment/Plan: Continue with current diagnosis. Patient continues to meet criteria for inpatient psychiatric admission for symptom stabilization and safety. Patient will be maintained on current psychotropic medication regimen. Will give second dose of long-acting injection today 15mg IM invsamara fregoso, plan for discharge Saturday if patient is doing well. Monitor for medication compliance and for any psychotropic medication side effects. Will continue to monitor ongoing response to treatment. Encouraged participation in milieu.
[2024-08-23] MEDS: PALIPERIDONE IM 156 MG/ML SYG IM ONE (14:07)
[2024-08-23] MEDS: LORazepam 1 MG TAB PO PRN (23:12)
[2024-08-24 10:24] VITALS: BP 144/86; PULSE 74; RESP 16; TEMP 97.6
--- NOTE | 2024-08-24 10:28 | P.DS ---
Providers Date of admission: 08/13/24 21:31 Expected date of discharge: 08/24/24 Attending physician: Filipe Mendes MD Consults: 08/13/24 21:35 Consult Physician Routine Consulting Provider: [facility] Consult Reason/Comments: Medical H&P Do you want consulting provider notified?: Yes, Notify in am Primary care physician: Balaji Bowser - Discharge Diagnosis(es) (1) Schizoaffective disorder Current Visit: Yes Status: Acute Priority: High (2) Cannabis use disorder Current Visit: Yes Status: Acute Priority: Medium Hospital Course: Admission HPI: Admission note was completed by inspector automatic typewriter "Patient is a 28-year-old male, lives with parents, was petitioned by his sister for psychosis agitation/aggression.Patient presented to the hospital [yesterday and was e valuated by EPS nurse and according to note "Upon assessment pt was in restraints. RN explained to pt why he was restrained, he states, "I wanted to scare them to break the hypnosis". Pt was calm during assessment and was taken out. Pt verbally contracted for safety. RN continued the assessment. Pt was slightly drowsy r/t IM's given. Pt denied SI, HI, and hallucinations at this time. RN did not see pt responding to IS at this time. When asked why he was here he stated "the fire department, they had a master control technician on the roof...demonic sacrifice alter...I could see they were being controlled, it was all apart of the scheme". When pt was taken out of restraints pt asked, "you aren't all brain washed are you"? Pt was petitioned by his sister who states he is erratic, religiously preoccupied, he is channeling demonic energies. He has not been sleeping or eating. He has been physically aggressive. He believes that his mother is a demon he need to punch her in the face to reset the timeline. Pt has no insight into his mental health. Pt denies etoh use. Admits to use of marijuana, but denies the use of other substances. Denies any medical conditions. Not in any mental health treatment and denies any inpatient stays. Pt has no home medications." Patient was very agitated and aggressive in the ER, psychotic and delusional. Patient was given several as needed medications for agitation, also placed in restraints. Patient was transferred to the mental health unit, again was aggressive towards staff attempted to steal nurses keys. Patient was not redirectable, was placed in restraints twice this morning and given several PRNs. Electronics Engineering Professor attempted to see patient this morning for assessment and patient was just out of 4 point restraints. He was heavily sedated, mumbled a few words, had the blankets covering his head. He did speak about being "controlled" by demons and believes that someone is out to get him. Not much information at this time. According to petition filled out by patient's sister states that "in a state of delusional psychosis, erratic behavior spiritually and religiously preoccupied. States he is an Archangel Charlie and channeling demonic energies physically and verbally hostile and aggressive. Not eating or sleeping". Petition also states that patient was threatening to punch his mother and her face and was believing that his mother was a demon and thought that he had spiritual sanchez. patient unable to give further infortmation att this time due to heavy sedation and mental state." Hospital course: Upon admission to the unit patient was admitted involuntarily on a petition and certificate and a second certificate was completed and faxed to the courts. Patient ended up signing a deferral with the trial attorney and agreeing to treatment. Patient was initially aggressive psychotic and labile however with time and treatment patient got along well with other patients on the unit and followed unit protocol. Patient required several as needed medications injections and also restraints due to patient's aggression impulsivity and hostility. Patient was compliant with the medications and denied any side effects throughout hospital course. Patient was started on Invega p.o. and transitioned onto Invega Sustenna given 234 mg IM on 08/19, second dose of 156 mg IM was given on 08/23 to help ensure compliance. Patient was also on trazodone nightly for sleep/mood. Patient spoke of his stressors and engaged in therapy both group/activity therapy. Patient was also seen by medical team for history and physical exam. Throughout the course of the hospitalization patient gradually improved with regards to mood, anxiety, psychosis, sleep and became more future oriented with improved insight and judgment. On the day of discharge patient de nied any suicidal or homicidal ideations intent or plan denied any auditory or visual hallucinations. Patient endorsed wanting to live for their health and family. The patient denied any access to guns or weapons. Patient denied any paranoia and did not endorse any delusions. Patient does have a significant history of substance abuse and was counseled on abstaining from all substances including alcohol and marijuana. Patient elected to do outpatient substance use treatment program through their outpatient provider. Patient was also counseled on the medications and need for regular compliance and was encouraged to follow-up with their outpatient appointment for mental health and also for primary care. Prior to discharge a family meeting will be arranged by social insurance specialist to answer any questions and ensure safety upon discharge incuding making sure that guns/weapons are either removed from the home or locked away. Mental status exam: General Appearance: Patient appears to be thin, curly hair, stated age is alert, pleasant, and cooperative. Patient is in no acute distress and has improved hygiene and grooming Behavior: Patient is calmly seated without any agitated behavior. Speech: Patient's speech is fluent and nonpressured. Mood/Affect: Patient reports their mood is "better", affect is congruent and euthymic. Suicidality/Homicidality: Patient denies having any suicidal or homicidal ideation intent or plan. Perceptions: Patient denies any auditory or visual hallucinations. Though content/process: There is no evidence of any delusional thought content and thought process is linear and goal-directed. More future oriented Memory and concentration: AOX3, grossly intact for the purposes of this session. Can spell "WORLD" backwards correctly. Judgment and insight: improved with guarded prognosis Impression: Schizoaffective disorder Cannabis use disorder Plan: -Continue with discharge today as patient has improved and stabilized psychiatrically and is not currently an imminent threat to themself and/or others. Patient will remain at chronically elevated risk for harm to self and/or others due to their impulsivity and substance abuse. -Continue medications: Patient was given Invega Sustenna 234 mg IM on 08/19, second dose of 156 mg IM was given on 08/23, monthly maintenance dose of 156 mg IM will be due on 09/21 at [facility]. Trazodone 150 mg nightly for mood/insomnia -Patient was counseled on the need for medication compliance and appropriate follow-up at mental health and also primary care for medical issues. Patient verbalized understanding and agreed. -Social work to arrange for and conduct family meeting to ensure safety upon discharge and answer any questions/concerns. also to ensure safe home environment that guns/weapons are either removed from the home or locked away. Social work also to arrange for patients follow up appointments with [facility] for psychiatric care along with follow up with primary care provider. -Patient counseled on abstaining from recreational drugs and marijuana and alcohol. Was informed/educated on the adverse effects on their physical and mental health. Patient verbally agreed and understood. Patient was offered subs tance abuse treatment however declined at this time. -Patient was instructed to return to the hospital or seek immediate medical care if their psychiatric or medical symptoms do worsen or reoccur. Allergies Allergy/AdvReac Type Severity Reaction Status Date / Time red dye 40 Allergy Nausea & Uncoded 08/13/24 18:44 Vomiting Laboratory Results WBC 5.9 k/uL (3.8-10.6) 08/14/24 09:24 RBC 4.90 m/uL (4.30-5.90) 08/14/24 09:24 Hgb 13.9 gm/dL (13.0-17.5) 08/14/24 09:24 Hct 43.9 % (39.0-53.0) 08/14/24 09:24 MCV 89.5 fL (80.0-100.0) 08/14/24 09:24 MCH 28.4 pg (25.0-35.0) 08/14/24 09:24 MCHC 31.7 g/dL (31.0-37.0) 08/14/24 09:24 RDW 12.6 % (11.5-15.5) 08/14/24 09:24 Plt Count 208 k/uL (150-450) 08/14/24 09:24 MPV 6.5 08/14/24 09:24 Neutrophils % 68 % 08/14/24 09:24 Lymphocytes % 21 % 08/14/24 09:24 Monocytes % 8 % 08/14/24 09:24 Eosinophils % 1 % 08/14/24 09:24 Basophils % 1 % 08/14/24 09:24 Neutrophils # 4.0 k/uL (1.3-7.7) 08/14/24 09:24 Lymphocytes # 1.3 k/uL (1.0-4.8) 08/14/24 09:24 Monocytes # 0.5 k/uL (0-1.0) 08/14/24 09:24 Eosinophils # 0.1 k/uL (0-0.7) 08/14/24 09:24 Basophils # 0.0 k/uL (0-0.2) 08/14/24 09:24 Sodium 140 mmol/L (137-145) 08/14/24 09:24 Potassium 3.8 mmol/L (3.5-5.1) 08/14/24 09:24 Chloride 106 mmol/L (98-107) 08/14/24 09:24 Carbon Dioxide 26 mmol/L (22-30) 08/14/24 09:24 Anion Gap 8 mmol/L 08/14/24 09:24 BUN 11 mg/dL (9-20) 08/14/24 09:24 Creatinine 1.14 mg/dL (0.66-1.25) 08/14/24 09:24 Est GFR (CKD-EPI)AfAm >90 (>60 ml/min/1.73 sqM) 08/14/24 09:24 Est GFR (CKD-EPI)NonAf 87 (>60 ml/min/1.73 sqM) 08/14/24 09:24 Glucose 81 mg/dL (74-99) 08/14/24 09:[address] Glu mg/dL 100 mg/dL 08/14/24 09:24 Hemoglobin A1c 5.1 % (<=6.0) 08/14/24 09:24 Calcium 9.2 mg/dL (8.4-10.2) 08/14/24 09:24 Total Bilirubin 0.8 mg/dL (0.2-1.3) 08/14/24 09:24 Conjugated Bilirubin 0.0 mg/dL (0.0-0.3) 08/14/24 09:24 Unconjugated Bilirubin 0.8 mg/dL (0.0-1.1) 08/14/24 09:24 Delta Bilirubin 0.0 mg/dL (0.0-0.2) 08/14/24 09:24 AST 26 U/L (17-59) 08/14/24 09:24 ALT 18 U/L (4-49) 08/14/24 09:24 Alkaline Phosphatase 37 U/L (38-126) L 08/14/24 09:24 Total Protein 6.5 g/dL (6.3-8.2) 08/14/24 09:24 Albumin 4.0 g/dL (3.5-5.0) 08/14/24 09:24 Triglycerides 35.50 mg/dL (0.00-149.00) 08/14/24 09:24 Cholesterol 143.00 mg/dL (0.00-200.00) 08/14/24 09:24 LDL Cholesterol, Calc 92.5 mg/dL (0.0-131.0) 08/14/24 09:24 VLDL Cholesterol, Calc 7.10 mg/dL (5.00-40.00) 08/14/24 09:24 HDL Cholesterol 43.40 mg/dL (40.00-60.00) 08/14/24 09:24 Cholesterol/HDL Ratio 3.29 Ratio 08/14/24 09:24 TSH 1.270 mIU/L (0.465-4.680) 08/14/24 09:24 Urine Color Colorless 08/16/24 13:00 Urine Appearance Clear (Clear) 08/16/24 13:00 Urine pH 5.5 (5.0-8.0) 08/16/24 13:00 Ur Specific [place] 1.005 (1.001-1.035) 08/16/24 13:00 Urine Protein Negative (Negative) 08/16/24 13:00 Urine Glucose (UA) Negative (Negative) 08/16/24 13:00 Urine Ketones 1+ (Negative) H 08/16/24 13:00 Urine Blood Negative (Negative) 08/16/24 13:00 Urine Nitrite Negative (Negative) 08/16/24 13:00 Urine Bilirubin Negative (Negative) 08/16/24 13:00 Urine Urobilinogen <2.0 mg/dL (<2.0) 08/16/24 13:00 Ur Leukocyte Esterase Negative (Negative) 08/16/24 13:00 Urine Opiates Screen Not Detected (NotDetected) 08/16/24 13:00 Ur Oxycodone Screen Not Detected (NotDetected) 08/16/24 13:00 Urine Methadone Screen Not Detected (NotDetected) 08/16/24 13:00 Ur Barbiturates Screen Not Detected (NotDetected) 08/16/24 13:00 U Tricyclic Antidepress Not Detected (NotDetected) 08/16/24 13:00 Ur Phencyclidine Scrn Not Detected (NotDetected) 08/16/24 13:00 Ur Amphetamines Screen Not Detected (NotDetected) 08/16/24 13:00 U Methamphetamines Scrn Not Detected (NotDetected) 08/16/24 13:00 U Benzodiazepines Scrn Detected (NotDetected) H 08/16/24 13:00 Urine Cocaine Screen Not Detected (NotDetected) 08/16/24 13:00 U Marijuana (THC) Screen Detected (NotDetected) H 08/16/24 13:00 SARS-CoV-2 (PCR) Not Detected (Not Detectd) 08/13/24 20:15 Vital Signs Temp 97.6 F 08/24/24 10:23 Pulse 74 08/24/24 10:23 Resp 16 08/24/24 10:23 BP 144/86 08/24/24 10:23 Pulse Ox 99 08/24/24 10:23 FiO2 Intake & Output 08/23/24 08/24/24 08/24/24 18:59 06:59 18:59 Weight 83.007 kg Patient Condition at Discharge: Stable Plan - Discharge Summary Discharge Rx Participant: Yes New Discharge Prescriptions: New traZODone HCL 150 mg PO HS 30 Days #30 tablet Paliperidone IM [Invega Sustenna] 156 mg IM QMONTHLY #1 each Discharge Medication List Paliperidone IM [Invega Sustenna] 156 mg IM QMONTHLY #1 each 08/24/24 [Rx] traZODone HCL 150 mg PO HS 30 Days #30 tablet 08/24/24 [Rx] Follow up Appointment(s)/Referral(s): Balaji Bowser MD [Primary Care Provider] - 1 Week Patient Instructions/Handouts: Schizoaffective Disorder (DC), Cannabis Abuse (DC) Activity/Diet/Wound Care/Special Instructions: [facility] Discharge Info Avoid the use of street drugs and alcohol. Take all medications as prescribed. When you are in need of refills on your medications, please contact your outpatient medical provider and/or outpatient psychiatrist. Please go to your scheduled outpatient appointments for aftercare treatment. If symptoms return or become worse, call the crisis line at or and/or visit the nearest emergency room for assistance. National Suicide and Crisis Lifeline - call or text 988 Discharge Disposition: HOME SELF-CARE
== END 2024-08-24 13:20 | disposition home or self-care (01) | DRG 885 ==
LOC: EC 16:48 → 3MHU 21:31
PROVIDERS: ADMIT Psychiatry & Neurology Psychiatry; ATTEND Psychiatry & Neurology Psychiatry
DX: F25.9 Schizoaffective disorder, unspecified (principal); Z78.1 Physical restraint status; F12.10 Cannabis abuse, uncomplicated; F41.9 Anxiety disorder, unspecified; G47.00 Insomnia, unspecified; Z79.899 Other long term (current) drug therapy; Z11.52 Encounter for screening for COVID-19; R45.1 Restlessness and agitation
CPT/HCPCS: 80053; 80061; 80306; 81003; 82075; 82248; 83036; 84443; 85025; 87635; 96372; 99285